=== PATIENT | male | born 1955 | race Caucasian/White ===

== ENCOUNTER 2017-09-25 14:04 | Inpatient (IN) | payer OTHER ==
[2017-09-25 15:43] VITALS: BMI 29.0
--- NOTE | 2017-09-25 17:35 | HP ---
CIWA Score - CIWA Score Nausea/Vomitin Muscle Tremors: 2 Anxiety: 2 Agitation: 3 Paroxysmal Sweats: No Perspiration Orientation: 0-Oriented Tacttile Disturbances: 0-None Auditory Disturbances: 1-Very Mild Visual Disturbances: 1-Very Mild Sensitivity Headache: 2-Mild CIWA-Ar Total Score: 13 Admission ROS S - HPI Chief Complaint: " I need help, I have a problem with my drinking, I tried for a few days by myself to stop drinking, I get the shakes and need to start drinking again, is horrible" Allergies/Adverse Reactions: Allergies Allergy/AdvReac Type Severity Reaction Status Date / Time No Known Allergies Allergy Verified 09/25/17 17:20 History of Present Illness: 62 yo male with hx of alcohol dependence is here seeking detox. PMHX: Hyperlipidemia, prostate CA, depression and anxiety . Reports last detox in [place] in February 2017. Longest period of sobriety, 3 year. Denies suicidal/ homicidal ideation or suicide attempts. Denies hx of seizures, reports hx of blackouts does not recall the last time. - Ebola screening Have you traveled outside of the country in the last 21 days: No Have you had contact with anyone from an Ebola affected area: No Have you been sick,other than usual withdrawal symptoms: No Do you have a fever: No - Review of Systems Constitutional: Chills, Loss of Appetite, Changes in sleep EENT: reports: No Symptoms Reported, Hearing Loss (bilateral decrease hearing) Respiratory: reports: No Symptoms reported Cardiac: reports: No Symptoms Reported GI: reports: Diarrhea ("I've been living on beer"), Poor Appetite, Poor Fluid Intake : reports: No Symptoms Reported Musculoskeletal: reports: Back Pain (chronic) Integumentary: reports: No Symptoms Reported Neuro: reports: No Symptoms reported Endocrine: reports: No Symptoms Reported Hematology: reports: No Symptoms Reported Psychiatric: reports: Orientated x3, Anxious Other Systems: Reviewed and Negative Patient History - Patient Medical History Hx Anemia: No Hx Asthma: No Hx Chronic Obstructive Pulmonary Disease (COPD): No Hx Cancer: No Hx Cardiac Disorders: No Hx Congestive Heart Failure: No Hx Hypertension: No Hx Hypercholesterolemia: Yes (on med) Hx Pacemaker: No HX Cerebrovascular Accident: No Hx Seizures: No Hx Dementia: No Hx Diabetes: No Hx Gastrointestinal Disorders: No Hx Liver Disease: Yes (Fatty Liver ) Hx Genitourinary Disorders: Yes (tx for Prostate CA ) Hx Sexually Transmitted Disorders: No Hx Renal Disease (ESRD): No Hx Thyroid Disease: No Hx Human Immunodeficiency Virus (HIV): No (last tested a year ago) Hx Hepatitis C: No Hx Depression: Yes Hx Suicide Attempt: No Hx Bipolar Disorder: No Hx Schizophrenia: No - Patient Surgical History Past Surgical History: Yes Hx Neurologic Surgery: No Hx Cataract Extraction: No Hx Cardiac Surgery: No Hx Lung Surgery: No Hx Breast Surgery: No Hx Breast Biopsy: No Hx Abdominal Surgery: No Hx Appendectomy: No Hx Cholecystectomy: No Hx Genitourinary Surgery: No Hx Section: No Hx Orthopedic Surgery: No Other Surgical History: lap prostatic suergery nfor ca of prostate 02/02 at [facility] - PPD History Previous Implant?: Yes Documented Results: Negative w/proof Date: 05/09/13 PPD to be Administered?: Yes - Reproductive History Patient is a Female of Child Bearing Age (11 -55 yrs old): No - Smoking Cessation Smoking history: Current every day smoker Have you smoked in the past 12 months: Yes Aproximately how many cigarettes per day: 20 Cigars Per Day: 0 Hx Chewing Tobacco Use: No Initiated information on smoking cessation: Yes 'Breaking Loose' booklet given: 09/25/17 - Substance & Tx. History Hx Alcohol Use: Yes Hx Substance Use: Yes Substance Use Type: None, Alcohol Hx Substance Use Treatment: Yes (Unknown facility in [place] February 2017) - Substances Abused Alcohol Route: Oral Frequency: Daily Amount used: 12 - 24 beers Age of first use: 12 Date of Last Use: 09/25/17 Alcohol-beer Route: Oral Frequency: Daily Amount used: 2-3 6 pks. Age of first use: 14 Date of Last Use: 09/25/17 Family Disease History - Family Disease History Family Disease History: Other: Father (alcohol ), Mother (alcohol ) Admission Physical Exam S - Vital Signs Vital Signs: Vital Signs - 24 hr 09/25/17 15:42 Temperature 98.0 F Pulse Rate 80 Respiratory 135 H Rate - Physical General Appearance: Yes: Appropriately Dressed, Mild Distress, Alcohol on Breath , Irritable, Anxious HEENTM: Yes: EOMI, Hearing grossly Normal, Normal ENT Inspection, Pharynx Normal , Tm's normal, Other (chelithis) Respiratory: Yes: Chest Non-Tender, Lungs Clear, Normal Breath Sounds, No Respiratory Distress, No Accessory Muscle Use Neck: Yes: No masses,lesions,Nodules, Trachea in good position Breast: Yes: Breast Exam Deferred Cardiology: Yes: Regular Rhythm, Regular Rate, S1, S2 Abdominal: Yes: Normal Bowel Sounds, Non Tender, Soft, Protuberent Genitourinary: Yes: Within Normal Limits Back: Yes: Normal Inspection Musculoskeletal: Yes: full range of Motion, Gait Steady, Pelvis Stable, Back pain Extremities: Yes: Normal Capillary Refill, Normal Inspection, Normal Range of Motion, Non-Tender Neurological: Yes: public service administrator II-XII NML intact, Fully Oriented, Alert, Motor Strength 5/5, Normal Response, Depressed Affect Integumentary: Yes: Normal Color, Dry, Moist Lymphatic: Yes: Within Normal Limits - Diagnostic (1) Alcohol dependence with withdrawal Current Visit: Yes Status: Acute Qualifiers: Complication of substance-induced condition: uncomplicated Qualified Code(s ): F10.230 - Alcohol dependence with withdrawal, uncomplicated (2) Dehydration Current Visit: Yes Status: Acute (3) Anxious mood Current Visit: Yes Status: Acute (4) Difficulty sleeping Current Visit: Yes Status: Acute (5) Fatty liver Current Visit: Yes Status: Chronic (6) Hypercholesterolemia Current Visit: Yes Status: Active Cleared for Admission [facility] - Detox or Rehab [facility] Level of Care: Medically Managed Detox Regimen/Protocol: Librium [facility] Breath Alcohol Content Breath Alcohol Content: 0.180 Urine Drug Screen - Results Drug Screen Negative: Yes
[2017-09-25] MEDS ORDERED: MENTHOL/PHENOL 1 EACH UD MM PRN (17:45)
[2017-09-25] MEDS ORDERED: MAGNESIUM HYDROX 2400MG/30ML ORAL SUSPENSION 30 ML CUP PO PRN (17:45)
[2017-09-25] MEDS ORDERED: LOPERAMIDE HCL 2 MG CAPSULE PO PRN (17:45)
[2017-09-25] MEDS ORDERED: MAG HYDROX/AL HYDROX/SIMETH 30 ML UNIT-DOSE CUP PO PRN (17:45)
[2017-09-25] MEDS ORDERED: MAGNESIUM CITRATE 300 ML BOTTLE PO PRN (17:45)
[2017-09-25] MEDS ORDERED: guaiFENesin/D-METHORPHAN HB 10 ML UNIT-DOSE CUPS PO PRN (17:45)
[2017-09-25] MEDS ORDERED: P-EPHED 60MG/TRIPROLIDI 2.5MG TABLET PO PRN (17:45)
[2017-09-25] MEDS ORDERED: NICOTINE POLACRILEX 2 MG GUM BC PRN (17:45)
[2017-09-25] MEDS ORDERED: IBUPROFEN 400 MG TABLET (FP) PO PRN (17:45)
[2017-09-25] MEDS ORDERED: hydrOXYzine PAMOATE 50 MG CAPSULE (FP) PO PRN (17:45)
[2017-09-25] MEDS ORDERED: chlordiazePOXIDE HCL 25 MG CAPSULE PO PRN (17:45)
[2017-09-25] MEDS ORDERED: chlordiazePOXIDE HCL 25 MG CAPSULE PO ONE (17:45)
[2017-09-25] MEDS: chlordiazePOXIDE HCL 25 MG CAPSULE PO SCH (22:34)
[2017-09-25] MEDS: THIAMINE HCL 100 MG TABLET (FP) PO SCH (22:35)
[2017-09-25] MEDS: ATORVASTATIN CA 20 MG TABLET (FP) PO SCH (22:35)
[2017-09-25] MEDS: MELATONIN 5 MG TABLETS PO PRN (22:37)
[2017-09-26 04:57] LABS: URINE APPEARANCE CLEAR; URINE BILIRUBIN NEGATIVE (<2.0 mg/dL); URINE BLOOD NEGATIVE (NEGATIVE); URINE COLOR COLORLESS; URINE GLUCOSE (UA) NEGATIVE (NEGATIVE); URINE KETONE NEGATIVE (NEGATIVE); URINE LEUK ESTERASE NEGATIVE (NEGATIVE); URINE NITRITE NEGATIVE (NEGATIVE); URINE PROTEIN NEGATIVE (NEGATIVE); URINE UROBILINOGEN NEGATIVE mg/dL (0.2-1.0)
[2017-09-26] MEDS: ACETAMINOPHEN 325 MG TABLET (FP) PO PRN (05:48)
[2017-09-26] MEDS: chlordiazePOXIDE HCL 25 MG CAPSULE PO SCH ×4 (05:48→22:22)
[2017-09-26 10:07] LABS: HEMATOCRIT 40.9 % (35.4-49); HEMOGLOBIN 13.8 GM/dL (11.7-16.9); MCH 29.9 pg (25.7-33.7); MCHC 33.7 g/dl (32.0-35.9); MEAN CELL VOLUME 88.6 fl (80-96); PLATELET COUNT 151 K/MM3 (134-434); RBC 4.62 M/mm3 (4.00-5.60); RDW 14.7 % (11.9-15.9); WHITE BLOOD COUNT 6.3 K/mm3 (4.0-10.0)
[2017-09-26 10:45] LABS: CHLORIDE 117 mmol/L (98-107); POTASSIUM 3.9 mmol/L (3.5-5.1); SODIUM 130 mmol/L (136-145)
[2017-09-26] MEDS: PRENATAL VITAMINS W/ FOLIC ACID TABLET (FP) PO SCH (10:47)
[2017-09-26] MEDS: NICOTINE 14 MG/24 HOURS TOPICAL PATCH TD SCH (10:47)
[2017-09-26] MEDS: ASPIRIN 81 MG CHEWABLE TABLETS PO SCH (10:47)
[2017-09-26 11:03] LABS: ALBUMIN 3.4 g/dl (3.4-5.0); ALK PHOS 92 U/L (45-117); ANION GAP -12 (8-16); BILIRUBIN,TOTAL 0.2 mg/dL (0.2-1.0); BLOOD UREA NITROGEN 13 mg/dL (7-18); CALCIUM 8.4 mg/dL (8.5-10.1); CO2 25 mmol/L (21-32); CREATININE 0.9 mg/dL (0.7-1.3); GLUCOSE,RANDOM 99 mg/dL (74-106); SGOT/AST 33 U/L (15-37); SGPT/ALT 42 U/L (12-78); TOT PROT 6.2 g/dl (6.4-8.2)
--- NOTE | 2017-09-26 12:18 | CONSULT ---
[facility] Psychiatric Consult - Data Date of interview: 09/26/17 Admission source: [facility] Identifying data: Readmission to [facility] for this 62 y/o male seeking detox treatment on for alcohol dependence.Patient is ,a father of three,domiciled and currently employed. Substance Abuse History: Confirmed by patient in this session.Details in current [facility] report : Smoking history: Current every day smoker. Have you smoked in the past 12 months: Yes. Aproximately how many cigarettes per day: 20. Cigars Per Day: 0. Hx Chewing Tobacco Use: No. Initiated information on smoking cessation: Yes. 'Breaking Loose' booklet given: 09/25/17. - Substance & Tx. History. Hx Alcohol Use: Yes. Hx Substance Use: Yes. Substance Use Type : None, Alcohol. Hx Substance Use Treatment: Yes (Unknown facility in [place] February 2017). - Substances Abused. Alcohol. Route: Oral. Frequency: Daily. Amount used: 12 - 24 beers. Age of first use: 12. Date of Last Use: . Alcohol-beer. Route: Oral. Frequency: Daily. Amount used: 2-3 6 pks. Age of first use: 14. Date of Last Use: 09/25/17 Medical History: Hypercholesterolemia,fatty liver and a history of surgery for prostatic cancer (2010). Psychiatric History: Patient denies history of mental illness or psychiatric hospitalizations.Mr Arango denies history of suicide attempts. Physical/Sexual Abuse/Trauma History: Patient denies. Additional Comment: Drug Screen is negative. Mental Status Exam - Mental Status Exam Alert and Oriented to: Time, Place, Person Cognitive Function: Good Patient Appearance: Disheveled Mood: Nervous, Withdrawn Affect: Mood Congruent Patient Behavior: Fatigued, Appropriate, Cooperative Speech Pattern: Clear, Appropriate Voice Loudness: Normal Thought Process: Intact, Goal Oriented Thought Disorder: Not Present Hallucinations: Denies Suicidal Ideation: Denies Homicidal Ideation: Denies Insight/Judgement: Poor Sleep: Poorly, Difficulty falling asleep Appetite: Good Muscle strength/Tone: Normal Gait/Station: Normal Psychiatric Findings - Problem List ([place] 1, 2,3) (1) Alcohol dependence with withdrawal Current Visit: Yes Status: Acute Qualifiers: Complication of substance-induced condition: uncomplicated Qualified Code(s ): F10.230 - Alcohol dependence with withdrawal, uncomplicated (2) Nicotine dependence Current Visit: Yes Status: Active (3) Insomnia Current Visit: Yes Status: Acute - Initial Treatment Plan Initial Treatment Plan: Psychoeducation.Sleep hygiene.Detoxification protocol in effect.Observation.
--- NOTE | 2017-09-26 12:57 | PN ---
[facility] CIWA - CIWA Score Nausea/Vomitin-Int. Nausea w/Dry Heave Muscle Tremors: 4-Moderate,w/Arms Extend Anxiety: 4-Mod. Anxious/Guarded Agitation: 4-Moderately Restless Paroxysmal Sweats: 1-Minimal Palms Moist Orientation: 0-Oriented Tacttile Disturbances: 0-None Auditory Disturbances: 0-None Visual Disturbances: 0-None Headache: 0-None Present CIWA-Ar Total Score: 17 BHS Progress Note (SOAP) Subjective: ANXIETY,SWEATS,NAUSEA,INTERMITTENT SLEEP. Objective: 09/26/17 12:56 Vital Signs Temperature 96.3 F L 09/26/17 09:22 Pulse Rate 74 09/26/17 11:00 Respiratory Rate 22 09/26/17 11:00 Blood Pressure 108/66 09/26/17 09:22 O2 Sat by Pulse Oximetry (%) Laboratory Last Values WBC 6.3 K/mm3 (4.0-10.0) 09/26/17 07:00 RBC 4.62 M/mm3 (4.00-5.60) 09/26/17 07:00 Hgb 13.8 GM/dL (11.7-16.9) D 09/26/17 07:00 Hct 40.9 % (35.4-49) D 09/26/17 07:00 MCV 88.6 fl (80-96) 09/26/17 07:00 MCH 29.9 pg (25.7-33.7) 09/26/17 07:00 MCHC 33.7 g/dl (32.0-35.9) 09/26/17 07:00 RDW 14.7 % (11.9-15.9) 09/26/17 07:00 Plt Count 151 K/MM3 (134-434) 09/26/17 07:00 MPV 9.0 fl (7.5-11.1) 09/26/17 07:00 Sodium 130 mmol/L (136-145) L 09/26/17 07:00 Potassium 3.9 mmol/L (3.5-5.1) 09/26/17 07:00 Chloride 117 mmol/L (98-107) H D 09/26/17 07:00 Carbon Dioxide 25 mmol/L (21-32) 09/26/17 07:00 Anion Gap -12 (8-16) L 09/26/17 07:00 BUN 13 mg/dL (7-18) 09/26/17 07:00 Creatinine 0.9 mg/dL (0.7-1.3) 09/26/17 07:00 Creat Clearance w eGFR > 60 (>60) 09/26/17 07:00 Random Glucose 99 mg/dL (74-106) 09/26/17 07:00 Calcium 8.4 mg/dL (8.5-10.1) L 09/26/17 07:00 Total Bilirubin 0.2 mg/dL (0.2-1.0) D 09/26/17 07:00 AST 33 U/L (15-37) D 09/26/17 07:00 ALT 42 U/L (12-78) D 09/26/17 07:00 Alkaline Phosphatase 92 U/L (45-117) 09/26/17 07:00 Total Protein 6.2 g/dl (6.4-8.2) L 09/26/17 07:00 Albumin 3.4 g/dl (3.4-5.0) 09/26/17 07:00 Urine Color Colorless 09/26/17 01:00 Urine Appearance Clear 09/26/17 01:00 Urine pH 5.0 (5.0-8.0) 09/26/17 01:00 Ur Specific [place] 1.003 (1.001-1.035) 09/26/17 01:00 Urine Protein Negative (NEGATIVE) 09/26/17 01:00 Urine Glucose (UA) Negative (NEGATIVE) 09/26/17 01:00 Urine Ketones Negative (NEGATIVE) 09/26/17 01:00 Urine Blood Negative (NEGATIVE) 09/26/17 01:00 Urine Nitrite Negative (NEGATIVE) 09/26/17 01:00 Urine Bilirubin Negative (<2.0 mg/dL) 09/26/17 01:00 Urine Urobilinogen Negative mg/dL (0.2-1.0) 09/26/17 01:00 Ur Leukocyte Esterase Negative (NEGATIVE) 09/26/17 01:00 Assessment: 09/26/17 12:57 WITHDRAWAL SX Plan: CONTINUE DETOX ZOFRAN PRN
[2017-09-26] MEDS ORDERED: ONDANSETRON *ODT* 4 MG TABLET SL PRN (12:59)
--- NOTE | 2017-09-26 13:06 | EKG ---
Test Reason : Blood Pressure : / mmHG Vent. Rate : 080 BPM Atrial Rate : 080 BPM P-R Int : 132 ms QRS Dur : 090 ms QT Int : 390 ms P-R-T Axes : 048 022 050 degrees QTc Int : 449 ms NORMAL SINUS RHYTHM NORMAL ECG NO PREVIOUS ECGS AVAILABLE Confirmed by VIELKA CRANE, ANA MARIA ([id number]) on 09/26/2017 1:06:19 PM Referred By: Confirmed By:ANA MARIA VORA MD
[2017-09-26] MEDS: THIAMINE HCL 100 MG TABLET (FP) PO SCH (22:21)
[2017-09-26] MEDS: ATORVASTATIN CA 20 MG TABLET (FP) PO SCH (22:22)
[2017-09-26] MEDS: MELATONIN 5 MG TABLETS PO PRN (22:23)
[2017-09-27] MEDS: chlordiazePOXIDE HCL 25 MG CAPSULE PO SCH ×3 (05:49→17:30)
[2017-09-27] MEDS: ACETAMINOPHEN 325 MG TABLET (FP) PO PRN (05:49)
[2017-09-27] MEDS: NICOTINE 14 MG/24 HOURS TOPICAL PATCH TD SCH (10:23)
[2017-09-27] MEDS: PRENATAL VITAMINS W/ FOLIC ACID TABLET (FP) PO SCH (10:23)
[2017-09-27] MEDS: ASPIRIN 81 MG CHEWABLE TABLETS PO SCH (10:23)
--- NOTE | 2017-09-27 16:29 | PN ---
S CIWA - CIWA Score Nausea/Vomitin-No Nausea/No Vomiting Muscle Tremors: 2 Anxiety: 4-Mod. Anxious/Guarded Agitation: 2 Paroxysmal Sweats: 3 Orientation: 0-Oriented Tacttile Disturbances: 2-Mild Itch/Numbness/Burn Auditory Disturbances: 3-Moderate Harsh/Frighten Visual Disturbances: 1-Very Mild Sensitivity Headache: 0-None Present CIWA-Ar Total Score: 17 BHS Progress Note (SOAP) Subjective: Sweating, Fatigue, Anxious, Tremors. Objective: PATIENT A & O X 3, OBSERVED AMBULATING ON UNIT. NO ACUTE DISTRESS. 09/27/17 16:27 Vital Signs Temperature 95.8 F L 09/27/17 14:48 Pulse Rate 87 09/27/17 14:48 Respiratory Rate 20 09/27/17 14:48 Blood Pressure 141/81 09/27/17 14:48 O2 Sat by Pulse Oximetry (%) Laboratory Tests 09/26/17 09/26/17 09/26/17 01:00 07:00 07:00 WBC 6.3 RBC 4.62 Hgb 13.8 D Hct 40.9 D MCV 88.6 MCH 29.9 MCHC 33.7 RDW 14.7 Plt Count 151 MPV 9.0 Sodium 130 L Potassium 3.9 Chloride 117 H D Carbon Dioxide 25 Anion Gap -12 L BUN 13 Creatinine 0.9 Creat Clearance w eGFR > 60 Random Glucose 99 Calcium 8.4 L Total Bilirubin 0.2 D AST 33 D ALT 42 D Alkaline Phosphatase 92 Total Protein 6.2 L Albumin 3.4 Urine Color Colorless Urine Appearance Clear Urine pH 5.0 Ur Specific [place] 1.003 Urine Protein Negative Urine Glucose (UA) Negative Urine Ketones Negative Urine Blood Negative Urine Nitrite Negative Urine Bilirubin Negative Urine Urobilinogen Negative Ur Leukocyte Esterase Negative RPR Titer 09/26/17 07:00 WBC RBC Hgb Hct MCV MCH MCHC RDW Plt Count MPV Sodium Potassium Chloride Carbon Dioxide Anion Gap BUN Creatinine Creat Clearance w eGFR Random Glucose Calcium Total Bilirubin AST ALT Alkaline Phosphatase Total Protein Albumin Urine Color Urine Appearance Urine pH Ur Specific [place] Urine Protein Urine Glucose (UA) Urine Ketones Urine Blood Urine Nitrite Urine Bilirubin Urine Urobilinogen Ur Leukocyte Esterase RPR Titer Nonreactive LABS NOTED. Assessment: 09/27/17 16:27 WITHDRAWAL SYMPTOMS. Plan: CONTINUE DETOX.
[2017-09-27] MEDS: THIAMINE HCL 100 MG TABLET (FP) PO SCH (22:28)
[2017-09-27] MEDS: chlordiazePOXIDE 5 MG CAPSULE PO SCH (22:28)
[2017-09-27] MEDS: ATORVASTATIN CA 20 MG TABLET (FP) PO SCH (22:28)
[2017-09-27] MEDS: MELATONIN 5 MG TABLETS PO PRN (22:30)
[2017-09-28] MEDS: chlordiazePOXIDE 5 MG CAPSULE PO SCH ×3 (06:06→17:25)
[2017-09-28] MEDS: ACETAMINOPHEN 325 MG TABLET (FP) PO PRN ×2 (06:07→22:30)
[2017-09-28] MEDS: PRENATAL VITAMINS W/ FOLIC ACID TABLET (FP) PO SCH (10:47)
[2017-09-28] MEDS: NICOTINE 14 MG/24 HOURS TOPICAL PATCH TD SCH (10:47)
[2017-09-28] MEDS: ASPIRIN 81 MG CHEWABLE TABLETS PO SCH (10:47)
--- NOTE | 2017-09-28 13:23 | PN ---
[facility] Progress Note (SOAP) Subjective: Anxious, Sweating. Objective: PATIENT A & O X 3, OBSERVED AMBULATING ON UNIT. NO ACUTE DISTRESS. 09/28/17 13:21 Vital Signs Temperature 96.8 F L 09/28/17 09:32 Pulse Rate 58 L 09/28/17 09:32 Respiratory Rate 20 09/28/17 09:32 Blood Pressure 124/77 09/28/17 09:32 O2 Sat by Pulse Oximetry (%) Laboratory Tests 09/26/17 09/26/17 09/26/17 01:00 07:00 07:00 WBC 6.3 RBC 4.62 Hgb 13.8 D Hct 40.9 D MCV 88.6 MCH 29.9 MCHC 33.7 RDW 14.7 Plt Count 151 MPV 9.0 Sodium 130 L Potassium 3.9 Chloride 117 H D Carbon Dioxide 25 Anion Gap -12 L BUN 13 Creatinine 0.9 Creat Clearance w eGFR > 60 Random Glucose 99 Calcium 8.4 L Total Bilirubin 0.2 D AST 33 D ALT 42 D Alkaline Phosphatase 92 Total Protein 6.2 L Albumin 3.4 Urine Color Colorless Urine Appearance Clear Urine pH 5.0 Ur Specific [place] 1.003 Urine Protein Negative Urine Glucose (UA) Negative Urine Ketones Negative Urine Blood Negative Urine Nitrite Negative Urine Bilirubin Negative Urine Urobilinogen Negative Ur Leukocyte Esterase Negative RPR Titer 09/26/17 07:00 WBC RBC Hgb Hct MCV MCH MCHC RDW Plt Count MPV Sodium Potassium Chloride Carbon Dioxide Anion Gap BUN Creatinine Creat Clearance w eGFR Random Glucose Calcium Total Bilirubin AST ALT Alkaline Phosphatase Total Protein Albumin Urine Color Urine Appearance Urine pH Ur Specific [place] Urine Protein Urine Glucose (UA) Urine Ketones Urine Blood Urine Nitrite Urine Bilirubin Urine Urobilinogen Ur Leukocyte Esterase RPR Titer Nonreactive LABS NOTED. Assessment: 09/28/17 13:22 WITHDRAWAL SYMPTOMS. Plan: CONTINUE DETOX. INCREASE DAILY PO FLUID INTAKE.
--- NOTE | 2017-09-28 18:06 | PN ---
Psychiatric Progress Note Vital Signs: Vital Signs Period Temp Pulse Resp BP Sys/Sandy Pulse Ox Last 24 Hr 96.1 F-98.1 F 58-85 18-20 110-124/70-79 Date of Session: 09/28/17 Chief Complaint:: " I was prescribed zoloft by my primary care doctor." HPI: Patient is close to completing his detoxification protocol.Mr Arango offers no acute issues.He wanted to discuss continuation of sertraline after discharge. ROS: Unremarkable.Intact cognition.Good activity level.Patient is ambulatory.Active and pleasant on approach.No somatic complaints. Current Medications: Active Medications Generic Name Dose Route Start Last Admin Trade Name Freq PRN Reason Stop Dose Admin Acetaminophen 650 mg 09/25/17 17:45 09/28/17 06:07 Tylenol - PO 650 mg Q4H PRN Administration FEVER Al Hydroxide/Mg Hydroxide 30 ml 09/25/17 17:45 Mylanta Oral Suspension - PO Q6H PRN DYSPEPSIA Aspirin 81 mg 09/26/17 10:00 09/28/17 10:47 Asa - PO 81 mg DAILY SHILPA Administration Atorvastatin Calcium 20 mg 09/25/17 22:00 09/27/17 22:28 Lipitor - PO 20 mg HS SHILPA Administration Chlordiazepoxide HCl 10 mg 09/28/17 23:00 Librium - PO 09/29/17 17:01 [id number] SHILPA Eucalyptus/Menthol/Phenol/Sorbitol 1 each 09/25/17 17:45 Cepastat Lozenge - MM Q4H PRN SORE THROAT Guaifenesin 10 ml 09/25/17 17:45 Robitussin Dm - PO Q6H PRN COUGH Hydroxyzine Pamoate 50 mg 09/25/17 17:45 Vistaril - PO Q4H PRN AGITATION Ibuprofen 400 mg 09/25/17 17:45 Motrin - PO Q6H PRN PAIN LEVEL 4-6 Loperamide HCl 4 mg 09/25/17 17:45 Imodium - PO Q6H PRN DIARRHEA Magnesium Citrate 300 ml 09/25/17 17:45 Citroma - PO Q48H PRN CONSTIPATION Magnesium Hydroxide 30 ml 09/25/17 17:45 Milk Of Magnesia - PO DAILY PRN CONSTIPATION Melatonin 5 mg 09/25/17 22:00 09/27/17 22:30 Melatonin PO 5 mg HS PRN Administration INSOMNIA Nicotine 14 mg 09/26/17 10:00 09/28/17 10:47 Nicoderm Patch - TD 14 mg DAILY SHILPA Administration Nicotine Polacrilex 2 mg 09/25/17 17:45 Nicorette Gum - BC Q2H PRN NICOTINE REPLACEMENT RX Ondansetron HCl 8 mg 09/26/17 12:59 Zofran Odt - SL Q8H PRN NAUSEA AND/OR VOMITING Multivit/Folic Acid/Iron 1 tab 09/26/17 10:00 09/28/17 10:47 Vitamins (Sjr) - PO 1 tab DAILY SHILPA Administration Pseudoephedrine/Triprolidine 1 combo 09/25/17 17:45 Actifed - PO TID PRN NASAL CONGESTION Thiamine HCl 100 mg 09/25/17 22:00 09/27/17 22:28 Vitamin B1 - PO 100 mg HS SHILPA Administration Medication(s) Change(s): None. Current Side Effect: No Lab tests ordered: No Lab tests reviewed: Yes Provider note:: Chart reviewed.Met with the patient.Mr Arango is found at bedside,wearing General Specific gowns and getting ready to eat his diner.Calm, relaxed and comfortable.No issues presented." I was prescribed zoloft by my primary care physician and I was wondering if my bottles of medications will be given back to me on discharge from here." Patient declares that he takes these pills " once in a while." He went further to say that he has not been compliant with his dose for more than two weeks.On admission,the patient had denied being on psychotropic medications.He recognizes that zoloft " does not represent an emergency for the moment ",endorses euthymia and plans to return to his PMD to discuss continuation of sertraline.Hospital course is benign.Patient has well tolerated his treatment.Mental status is stable.Mr Arango is at his baseline.NO indication for acute psychiatric intervention. Total face to face time:: 25 Mental Status Exam - Mental Status Exam Alert and Oriented to: Time, Place, Person Cognitive Function: Good Patient Appearance: Well Groomed Mood: Euthymic Affect: Appropriate, Normal Range Patient Behavior: Appropriate, Cooperative Speech Pattern: Clear, Appropriate Voice Loudness: Normal Thought Process: Intact, Goal Oriented Thought Disorder: Not Present Hallucinations: Denies Suicidal Ideation: Denies Homicidal Ideation: Denies Insight/Judgement: Good Sleep: Well Appetite: Good Muscle strength/Tone: Normal Gait/Station: Normal Psychiatric Treatment Plan - Problem List (1) Alcohol dependence with withdrawal Current Visit: Yes Qualifiers: Complication of substance-induced condition: uncomplicated Qualified Code(s ): F10.230 - Alcohol dependence with withdrawal, uncomplicated (2) Nicotine dependence Current Visit: Yes (3) Insomnia Current Visit: Yes
[2017-09-28] MEDS: THIAMINE HCL 100 MG TABLET (FP) PO SCH (22:30)
[2017-09-28] MEDS: MELATONIN 5 MG TABLETS PO PRN (22:30)
[2017-09-28] MEDS: chlordiazePOXIDE HCL 10 MG CAPSULE PO SCH (22:30)
[2017-09-28] MEDS: ATORVASTATIN CA 20 MG TABLET (FP) PO SCH (22:30)
[2017-09-29] MEDS: chlordiazePOXIDE HCL 10 MG CAPSULE PO SCH (05:35)
[2017-09-29 06:38] VITALS: BP 115/72; PULSE 67; TEMP 95
--- NOTE | 2017-09-29 17:02 | PN ---
[facility]HS Progress Note (SOAP) Subjective: Patient denies any current Detox symptoms and reports that he feels well overall. Objective: PATIENT A & O X 3, OBSERVED AMBULATING ON UNIT. NO ACUTE DISTRESS. 09/29/17 17:00 Vital Signs Temperature 95.0 F L 09/29/17 06:38 Pulse Rate 67 09/29/17 06:38 Respiratory Rate 20 09/29/17 06:38 Blood Pressure 115/72 09/29/17 06:38 O2 Sat by Pulse Oximetry (%) Laboratory Tests 09/26/17 09/26/17 09/26/17 01:00 07:00 07:00 WBC 6.3 RBC 4.62 Hgb 13.8 D Hct 40.9 D MCV 88.6 MCH 29.9 MCHC 33.7 RDW 14.7 Plt Count 151 MPV 9.0 Sodium 130 L Potassium 3.9 Chloride 117 H D Carbon Dioxide 25 Anion Gap -12 L BUN 13 Creatinine 0.9 Creat Clearance w eGFR > 60 Random Glucose 99 Calcium 8.4 L Total Bilirubin 0.2 D AST 33 D ALT 42 D Alkaline Phosphatase 92 Total Protein 6.2 L Albumin 3.4 Urine Color Colorless Urine Appearance Clear Urine pH 5.0 Ur Specific [place] 1.003 Urine Protein Negative Urine Glucose (UA) Negative Urine Ketones Negative Urine Blood Negative Urine Nitrite Negative Urine Bilirubin Negative Urine Urobilinogen Negative Ur Leukocyte Esterase Negative RPR Titer 09/26/17 07:00 WBC RBC Hgb Hct MCV MCH MCHC RDW Plt Count MPV Sodium Potassium Chloride Carbon Dioxide Anion Gap BUN Creatinine Creat Clearance w eGFR Random Glucose Calcium Total Bilirubin AST ALT Alkaline Phosphatase Total Protein Albumin Urine Color Urine Appearance Urine pH Ur Specific [place] Urine Protein Urine Glucose (UA) Urine Ketones Urine Blood Urine Nitrite Urine Bilirubin Urine Urobilinogen Ur Leukocyte Esterase RPR Titer Nonreactive LABS NOTED. Assessment: 09/29/17 17:01 COMPLETION OF DETOX REGIMEN. Plan: PATIENT SCHEDULED FOR DISCHARGE FROM DETOX TODAY. PATIENT WILL RETURN HOME AND ATTEND LOCAL AA MEETINGS HE DID PRIOR TO ADMISSION TO DETOX.
--- NOTE | 2017-09-29 17:03 | DS ---
[facility] Detox Discharge Summary Admission Date: 09/25/17 Discharge Date: 09/29/17 - History Present History: Alcohol Dependence Additional Comments: PATIENT WILL RETURN HOME AND ATTEND LOCAL AA MEETINGS HE DID PRIOR TO ADMISSION TO DETOX. PATIENT WAS DISCHARGED FROM DETOX UNIT IN STABLE MEDICAL CONDITION. Pertinent Past History: Insomnia, Fatty Liver, Hypercholesterolemia, History of Prostate CA (Treated), Nicotine Dependence, Dehydration. - Physical Exam Results Vital Signs: Vital Signs Temperature 95.0 F L 09/29/17 06:38 Pulse Rate 67 09/29/17 06:38 Respiratory Rate 20 09/29/17 06:38 Blood Pressure 115/72 09/29/17 06:38 O2 Sat by Pulse Oximetry (%) Pertinent Admission Physical Exam Findings: WITHDRAWAL SYMPTOMS. Laboratory Tests 09/26/17 09/26/17 09/26/17 01:00 07:00 07:00 WBC 6.3 RBC 4.62 Hgb 13.8 D Hct 40.9 D MCV 88.6 MCH 29.9 MCHC 33.7 RDW 14.7 Plt Count 151 MPV 9.0 Sodium 130 L Potassium 3.9 Chloride 117 H D Carbon Dioxide 25 Anion Gap -12 L BUN 13 Creatinine 0.9 Creat Clearance w eGFR > 60 Random Glucose 99 Calcium 8.4 L Total Bilirubin 0.2 D AST 33 D ALT 42 D Alkaline Phosphatase 92 Total Protein 6.2 L Albumin 3.4 Urine Color Colorless Urine Appearance Clear Urine pH 5.0 Ur Specific [place] 1.003 Urine Protein Negative Urine Glucose (UA) Negative Urine Ketones Negative Urine Blood Negative Urine Nitrite Negative Urine Bilirubin Negative Urine Urobilinogen Negative Ur Leukocyte Esterase Negative RPR Titer 09/26/17 07:00 WBC RBC Hgb Hct MCV MCH MCHC RDW Plt Count MPV Sodium Potassium Chloride Carbon Dioxide Anion Gap BUN Creatinine Creat Clearance w eGFR Random Glucose Calcium Total Bilirubin AST ALT Alkaline Phosphatase Total Protein Albumin Urine Color Urine Appearance Urine pH Ur Specific [place] Urine Protein Urine Glucose (UA) Urine Ketones Urine Blood Urine Nitrite Urine Bilirubin Urine Urobilinogen Ur Leukocyte Esterase RPR Titer Nonreactive LABS NOTED. - Treatment Hospital Course: Detox Protocol Followed, Detoxed Safely, Responded well, Discharged Condition Good Patient has Accepted a Rehab Referral to: PT. WILL RETURN HOME, WILL RETURN TO AA OUTPATIENT SUPPORT GROUP MEETINGS. - Medication Discharge Medications: Ambulatory Orders Aspirin [ASA -] 81 mg PO DAILY 09/25/17 Sertraline HCl [Zoloft -] 75 mg PO HS 09/25/17 Simvastatin [Zocor -] 20 mg PO HS 09/25/17 - Diagnosis (1) Hypercholesterolemia Status: Active (2) Nicotine dependence Status: Active (3) Alcohol dependence with withdrawal Status: Acute Qualifiers: Complication of substance-induced condition: uncomplicated Qualified Code(s ): F10.230 - Alcohol dependence with withdrawal, uncomplicated (4) Fatty liver Status: Chronic (5) Anxious mood Status: Acute (6) Difficulty sleeping Status: Acute (7) Dehydration Status: Acute (8) Insomnia Status: Acute Qualifiers: Insomnia type: unspecified Qualified Code(s): G47.00 - Insomnia, unspecified - AMA Did Patient Leave Against Medical Advice: No
== END 2017-09-29 09:21 | disposition home or self-care (01) | DRG 775 ==
LOC: YASAS 14:04 → Y3N 18:01
PROVIDERS: ADMIT Internal Medicine; ATTEND Internal Medicine
PROC: HZ2ZZZZ Detoxification Services for Substance Abuse Treatment (ICD-10-PCS; principal; 2017-09-25)
DX: F10.230 Alcohol dependence with withdrawal, uncomplicated (principal); F17.210 Nicotine dependence, cigarettes, uncomplicated; F32.9 Major depressive disorder, single episode, unspecified; G47.00 Insomnia, unspecified; E86.0 Dehydration; E78.00 Pure hypercholesterolemia, unspecified; K76.0 Fatty (change of) liver, not elsewhere classified; E78.5 Hyperlipidemia, unspecified; Z85.46 Personal history of malignant neoplasm of prostate
CPT/HCPCS: 36415; 80053; 81003; 85027; 86593; 93005; 93010